=== PATIENT | female | born 1980 | race Caucasian/White ===

== ENCOUNTER 2017-01-22 19:05 | Inpatient (IN) | payer OTHER ==
[2017-01-22 20:03] LABS: BILIRUBIN NEGATIVE (NEGATIVE); BLOOD NEGATIVE Ery/uL (NEGATIVE); CLARITY CLEAR (CLEAR); COLOR YELLOW (YELLOW); GLUCOSE (U) NORMAL (NORMAL); HCT 39.6 % (37.0-47.0); HGB 13.1 g/dl (12.5-16.0); KETONE (U) TRACE mg/dL (NEGATIVE); LEUKOCYTES NEGATIVE Leu/uL (NEGATIVE); MCH 29.6 pg (25.0-31.0); MCHC 33.1 g/dL (32.0-36.0); MCV 89.6 fL (78.0-100.0); MPV 9.9 fL (6.0-9.5); NITRITE NEGATIVE (NEGATIVE); PROTEIN NEGATIVE (NEGATIVE); RBC 4.42 M/uL (4.20-5.40); RDW 14.6 % (11.5-14.0); SPECIFIC GRAVITY <=1.005 (1.001-1.030); UROBILINOGEN 0.2 mg/dL (0.2-1.0); WBC 11.7 K/uL (4.0-10.5); pH 6.5 (5.0-9.0)
[2017-01-22 20:17] LABS: AMPHETAMINES NEGATIVE (NEGATIVE); BARBITURATES NEGATIVE (NEGATIVE); BENZODIAZEPINES NEGATIVE (NEGATIVE); COCAINE NEGATIVE (NEGATIVE); MARIJUANA (THC) POSITIVE (NEGATIVE); METHADONE NEGATIVE (NEGATIVE); TRICYCLIC ANTIDEPRESSANT NEGATIVE (NEGATIVE)
[2017-01-24 11:02] LABS: CREATININE 0.5 mg/dL (0.5-1.0); POTASSIUM 4.1 mmol/L (3.5-5.1)
[2017-01-25 05:33] LABS: HCT 30.7 % (37.0-47.0); HGB 10.1 g/dl (12.5-16.0); MCHC 32.9 g/dL (32.0-36.0); MCV 91.1 fL (78.0-100.0); MPV 9.9 fL (6.0-9.5); RBC 3.37 M/uL (4.20-5.40); RDW 14.7 % (11.5-14.0); WBC 14.1 K/uL (4.0-10.5)
== END 2017-01-26 11:15 | disposition home or self-care (01) | DRG 765 ==
LOC: FOB 19:05
PROVIDERS: ADMIT Obstetrics & Gynecology
PROC: 3E0P7GC Introduction of Other Therapeutic Substance into Female Reproductive, Via Natural or Artificial Opening (ICD-10-PCS; 2017-01-24)
PROC: 10907ZC Drainage of Amniotic Fluid, Therapeutic from Products of Conception, Via Natural or Artificial Opening (ICD-10-PCS; 2017-01-24)
PROC: 4A1HX4Z Monitoring of Products of Conception, Cardiac Electrical Activity, External Approach (ICD-10-PCS; 2017-01-24)
PROC: 10D00Z1 Extraction of Products of Conception, Low, Open Approach (ICD-10-PCS; principal; 2017-01-24 08:00)
PROC: 3E0234Z Introduction of Serum, Toxoid and Vaccine into Muscle, Percutaneous Approach (ICD-10-PCS; 2017-01-25)
DX: O24.429 Gestational diabetes mellitus in childbirth, unspecified control (principal); O41.1230 Chorioamnionitis, third trimester, not applicable or unspecified; O99.214 Obesity complicating childbirth; E66.01 Morbid (severe) obesity due to excess calories; D62 Acute posthemorrhagic anemia; O36.0930 Maternal care for other rhesus isoimmunization, third trimester, not applicable or unspecified; O62.1 Secondary uterine inertia; Z3A.39 39 weeks gestation of pregnancy; Z37.0 Single live birth; O09.513 Supervision of elderly primigravida, third trimester; R82.5 Elevated urine levels of drugs, medicaments and biological substances; A63.0 Anogenital (venereal) warts; Z91.19 Patient's noncompliance with other medical treatment and regimen; O69.81X0 Labor and delivery complicated by cord around neck, without compression, not applicable or unspecified; O99.02 Anemia complicating childbirth; F17.200 Nicotine dependence, unspecified, uncomplicated; J45.909 Unspecified asthma, uncomplicated
CPT/HCPCS: 36415; 80048; 80170; 80305; 81003; 82947; 82962; 85461; 86850; 86900; 86901; 88307; J0456; J0690; J1100; J1580; J1885; J2274; J2300; J2310; J2405; J2790; J2795; J3010

== ENCOUNTER 2022-04-23 14:28 | Emergency (ER) | payer OTHER ==
[2022-04-23] MEDS ORDERED: CLONAZEPAM 1MG T1 MG PO (14:37)
[2022-04-23] MEDS ORDERED: OMEPRAZOLE 20MG20 MG PO (14:37)
[2022-04-23] MEDS ORDERED: GABAPENTIN600 MG PO (14:37)
[2022-04-23] MEDS ORDERED: RISPERIDONE0.5 MG PO (14:38)
[2022-04-23 15:25] LABS: BASOPHIL 0.5 % (0-2); EOSINOPHIL 1.4 % (0-5); HCT 44.5 % (37.0-47.0); HGB 14.9 g/dl (12.5-16.0); LYMPHOCYTE 26.1 % (15-48); MCH 30.7 pg (25.0-31.0); MCHC 33.5 g/dL (32.0-36.0); MCV 91.6 fL (78.0-100.0); MPV 10.5 fL (6.0-9.5); NEUTROPHIL 66.7 % (41-80); NRBC 0; PLT 190 K/uL (150-400); RBC 4.86 M/uL (4.20-5.40); RDW 12.5 % (11.5-14.0); WBC 7.6 K/uL (4.0-10.5)
[2022-04-23 15:40] LABS: INR 1.03 (0.9-1.2); PROTHROMBIN TIME 12.9 SECONDS (11.8-13.4); PTT 25.3 SECONDS (24.4-34.7)
[2022-04-23 15:41] LABS: D-DIMER 0.57 ug/mLFEU (0.00-0.41)
[2022-04-23 15:49] LABS: BUN/CREAT RATIO (CALC) 26.2 RATIO; CREATININE 0.65 mg/dL (0.51-0.95)
[2022-04-23 17:10] LABS: CORONAVIRUS 2019 SARS-COV-2 NEGATIVE (NEGATIVE); INFLUENZA A NAA NEGATIVE (NEGATIVE)
[2022-04-23 18:14] LABS: BILIRUBIN NEGATIVE (NEGATIVE); BLOOD NEGATIVE Ery/uL (NEGATIVE); CLARITY CLEAR (CLEAR); COLOR YELLOW (YELLOW); GLUCOSE (U) NORMAL (NORMAL); LEUKOCYTES NEGATIVE Leu/uL (NEGATIVE); NITRITE NEGATIVE (NEGATIVE); PROTEIN NEGATIVE (NEGATIVE); SPECIFIC GRAVITY 1.025 (1.001-1.030); UROBILINOGEN 0.2 mg/dL (0.2-1.0)
[2022-04-23 19:16] LABS: FT4 (FREE T4) 0.9 ng/dL (0.76-1.46)
== END 2022-04-23 20:18 | disposition home or self-care (01) ==
LOC: FER 14:28
PROVIDERS: Nurse Practitioner Family
DX: R07.89 Other chest pain (principal); F41.9 Anxiety disorder, unspecified; F17.210 Nicotine dependence, cigarettes, uncomplicated; Z20.822 Contact with and (suspected) exposure to COVID-19; Z28.310 Unvaccinated for COVID-19
CPT/HCPCS: 36415; 70450; 71045; 71275; 80048; 81003; 84439; 84443; 84484; 85025; 85379; 85610; 85730; 93005; J7030; Q9967; U0002